=== PATIENT | male | born 1990 | race Caucasian/White ===

== ENCOUNTER 2017-06-21 15:48 | Emergency (ER) | payer SELFPAY ==
[~2017-06-21] VITALS: Ht 180.3 cm; Wt 81.6 kg
[~2017-06-21 15:48] MED LIST: AMOX500C2 PO
--- OUTSIDE RECORDS SUMMARY | 2017-06-21 15:54 | XMS REPORT ---
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 Info Not Available Non Drug Allergy Problems Problem Type Condition Code Onset Dates Condition Status Problem Other chronic pain G89.29 Active Problem Allergic rhinitis, unspecified allergic rhinitis type J30.9 Active Problem Lumbago with sciatica, unspecified side M54.40 Active Problem Cough R05 Active Assessment Other chronic pain G89.29 Active Problem Wheezing R06.2 Active Problem Dysphagia, unspecified type R13.10 Active Medications Medication Code System Code Instructions Start Date End Date Status Dosage Zantac 150 Maximum Strength [facility] [address]-80 150 MG Orally Twice a day Aug 23, 2015 1 tablet Fluticasone Propionate [facility] [address]-85 50 MCG/ACT Nasally 2 times a day Aug 23, 2015 1 spray in each nostril E-Z Spacer ND 0 1 by oral route Once a day Aug 23, 2015 as directed Albuterol Sulfate HFA [facility] [address]-10 108 (90 Base) MCG/ACT Inhalation every 4 hrs Aug 23, 2015 2 puffs as needed Procedures Procedure Coding System Code Date Office Visit, Est Pt., Level 3 CPT-4 55548 Apr 09, 2016 Vital Signs Date/Time: Apr 09, 2016 Cardiac Monitoring Heart Rate 68 bpm Weight 190.4 lbs Height 71 in BMI 26.55 Index Blood Pressure Diastolic 82 mmHg Blood Pressure Systolic 130 mmHg Results No Known Results Summary Purpose eClinicalWorks Submission
[2017-06-21] MEDS ORDERED: RX-AMOX/CLAV. (AUGMENTIN) 500MG TAB PPK#2 PO STA (15:57)
--- NOTE | 2017-06-21 16:05 | ED Cough/URI ---
General Chief Complaint: Cough/Cold/Flu Symptoms Stated Complaint: LIGHTHEADED,CHILLS,COUGH,SOB Source: patient Exam Limitations: no limitations History of Present Illness Time seen by provider: 15:59 Initial Comments Patient has ER private conveyance with a chief complaint of a little over week of nasal and chest congestion, sore throat, fevers, chills, sweats, progressively worsening malaise. He does have a history of asthma and uses Symbicort daily but has not been using his albuterol very much. He denies shortness of breath or wheezing. He has no rash. Allergies and Home Medications Allergies Coded Allergies: No Known Allergies (Unverified Allergy, Mild, 11/04/08) Home Medications Amoxicillin 500 Mg Capsule, 1 EACH PO TID, #20 Ref 0 Prescribed by: CHITRA FISHER on 05/06/10 0118 Constitutional: chills, No diaphoresis, fever, malaise EENTM: ear pain, No ear discharge Respiratory: cough, No phlegm, No short of breath, No wheezing Cardiovascular: No chest pain, No palpitations, No syncope Gastrointestinal: No constipation, No diarrhea, No nausea, No vomiting Genitourinary: No discharge, No dysuria Musculoskeletal: No back pain, No joint pain Skin: No pruritus, No rash Psychiatric/Neurological: Denies Headache, Denies Numbness, Denies Paresthesia Past Raqrshg-Ilxepx-Ocbwgg Hx Patient Social History Alcohol Use: Occasionally Uses Recreational Drug Use: Yes Drug of Choice: marijuana Smoking Status: Never a Smoker Recent Foreign Travel: No Contact w/Someone Who Travel: No Physical Exam Vital Signs Vital Sign - Last 12Hours 06/21/17 15:58 O2 Delivery Room Air Capillary Refill : General Appearance: WD/WN, mild distress Eyes: Bilateral Eye Normal Inspection, Bilateral Eye PERRL, Bilateral Eye EOMI HEENT: PERRL/EOMI, No photophobia, TM abnormal (R) (dull erythematous retracted and tender), TM abnormal (L) (dull with clear serous effusion), pharyngeal erythema, No tonsillar exudate Neck: supple, normal inspection Respiratory: chest non-tender, lungs clear, normal breath sounds, no respiratory distress, no accessory muscle use Cardiovascular: normal peripheral pulses, regular rate, rhythm, no edema Neurologic/Psychiatric: alert, oriented x 3 Skin: normal color, warm/dry Progress/Results/Core Measures Suspected Sepsis SIRS Temperature: Pulse: Respiratory Rate: Blood Pressure / Mean: Results/Orders Vital Signs/I&O Vital Sign - Last 12Hours 06/21/17 15:58 O2 Delivery Room Air Capillary Refill : Departure Impression Impression: Primary Impression: Acute otitis media, right Disposition: 01 HOME, SELF-CARE Condition: Stable Departure-Patient Inst. Decision time for Depature: 16:21 Referrals: REINA LEAVITT MD (PCP/Family) Primary Care Physician Patient Instructions: Ear Infections (Otitis Media) (DC) Add. Discharge Instructions: Drink plenty of fluids and use Tylenol 1000 mg every 8 hours as well as ibuprofen 800 mg every 8 hours as needed for the pain, body aches, headaches or fevers and chills. You can use heating pads as well as vapor rubs such as Vicks or Mentholatum and a humidifier to help with the congestion. 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 Complete the full 10 day course. If you're not seeing some improvement by day 3 or 4 or your symptoms are worsening then you should follow up with your primary care physician. All discharge instructions reviewed with patient and/or family. Voiced understanding. Scripts Amoxicillin/Potassium Clav (Augmentin 875-125 Tablet) 1 Each Tablet 1 EACH PO BID for 9 Days, #18 TAB 0 Refills Prov: PORFIRIO CERRATO 06/21/17 Work/School Note: Work Release Form Date Seen in the Emergency Department: Jun 21, 2017 Return to Work: Jun 22, 2017 Restrictions: No Restrictions Copy Copies To 1: REINA LEAVITT MD, TITUS J Jun 21, 2017 16:05
[2017-06-21] MEDS ORDERED: AMOX-358 PO (16:09)
[2017-06-21 16:25] VITALS: BP 134/80
== END 2017-06-21 16:25 | disposition home or self-care (01) ==
LOC: EDUNIT# 15:48 → ER 15:50
DX: H65.01 Acute serous otitis media, right ear (principal)
CPT/HCPCS: 87804; 99282